=== PATIENT | male | born 1980 | race Caucasian/White ===

== ENCOUNTER 2018-04-29 23:47 | Emergency (ER) | payer OTHER ==
[2018-04-30] MEDS: AUGMENTIN 875 MG TAB PO (01:42)
== END 2018-04-30 01:47 | disposition home or self-care (01) ==
LOC: M ED 23:47
DX: J02.9 Acute pharyngitis, unspecified (principal); Z72.0 Tobacco use
CPT/HCPCS: 99282

== ENCOUNTER 2021-11-24 22:46 | Emergency (ER) | payer OTHER ==
[~2021-11-24] VITALS: Ht 180.3 cm; Wt 100.0 kg
[~2021-11-24 22:46] MED LIST: AUGM500T34 PO
[2021-11-24 22:47] VITALS: BP 132/88
[2021-11-24] MEDS ORDERED: LYRI150C PO (22:51)
[2021-11-24] MEDS ORDERED: DICL50TA2 PO (22:52)
== END 2021-11-25 01:51 | disposition home or self-care (01) ==
LOC: M ED 22:46
DX: S86.112A Strain of other muscle(s) and tendon(s) of posterior muscle group at lower leg level, left leg, initial encounter (principal); M79.662 Pain in left lower leg; Y92.9 Unspecified place or not applicable; Y93.9 Activity, unspecified; Y99.9 Unspecified external cause status

== ENCOUNTER → 2024-07-28 | Outpatient (CLI) | payer OTHER ==
[~2024-07-28] MED LIST changes: +DICL50TA2 PO; +LYRI150C PO; +PROHANCE 279.3MG/ML 15ML VIAL ONE; +PROHANCE 279.3MG/ML 5ML VIAL ONE
== END ==
LOC: M PLAIMG 06:40
PROVIDERS: ATTEND Physician Assistant
DX: S62.015D Nondisplaced fracture of distal pole of navicular [scaphoid] bone of left wrist, subsequent encounter for fracture with routine healing (principal)